=== PATIENT | male | born 2000 | race Asian ===

== ENCOUNTER 2020-05-22 10:27 | Outpatient (CLI) | payer BC ==
[2020-04-18 12:13] LABS: #Eosinphils 0.1 10x3/uL (0.0-0.5); #Monocytes 0.6 10x3/uL (0.0-1.1); #Neutrophils 4.5 10x3/uL (1.5-8.4); %Basophils 0.4 % (0.0-2.0); %Eosinophils 1.5 % (0.0-6.0); %Lymphocytes 27.4 % (18.0-47.0); %Monocytes 8.4 % (0.0-10.0); %Neutrophils 61.6 % (40.0-75.0); Mean Corpuscular HGB CONC 32.8 g/dL (32.0-36.0); Mean Corpuscular Hemoglobin 29.1 pg (27.0-33.0); Mean Corpuscular Volume 88.9 fl (81.2-95.1); Mean Platelet Volume 10.8 fl (7.4-10.4); Platelet Count 241 10x3/uL (150-450); RBC Distribution Width 12.6 % (11.5-14.5); Red Blood Cell (RBC) Count 5.49 10x6/uL (4.32-5.72); White Blood Cell (WBC) Count 7.3 10x3/uL (3.5-10.5)
[2020-04-18 23:10] LABS: SARS-CoV-2 PCR by NAA Not Detected (NotDetected)
[2020-05-22 12:28] LABS: #Basophils 0.1 10x3/uL (0.0-0.2); #Eosinphils 0.1 10x3/uL (0.0-0.5); #Monocytes 0.7 10x3/uL (0.0-1.1); #Neutrophils 5.3 10x3/uL (1.5-8.4); %Basophils 0.6 % (0.0-2.0); %Eosinophils 1.6 % (0.0-6.0); %Lymphocytes 23.2 % (18.0-47.0); %Monocytes 8.3 % (0.0-10.0); %Neutrophils 65.8 % (40.0-75.0); Hemoglobin 15.6 g/dL (13.5-17.5); Mean Corpuscular HGB CONC 33.2 g/dL (32.0-36.0); Mean Corpuscular Hemoglobin 29.4 pg (27.0-33.0); Mean Corpuscular Volume 88.7 fl (81.2-95.1); Mean Platelet Volume 11.2 fl (7.4-10.4); Platelet Count 226 10x3/uL (150-450); RBC Distribution Width 12.7 % (11.5-14.5)
[2020-05-22 22:07] LABS: SARS-CoV-2 PCR by NAA Not Detected (NotDetected)
== END 2020-05-22 10:28 | disposition home or self-care (01) ==
LOC: LABBT 10:27
PROVIDERS: ATTEND Surgery
DX: Z01.812 Encounter for preprocedural laboratory examination (principal); L05.91 Pilonidal cyst without abscess; Z20.822 Contact with and (suspected) exposure to COVID-19
CPT/HCPCS: 85025; 87635; U0003; U0005

== ENCOUNTER 2020-05-24 07:48 | Day surgery (SDC) | payer BC ==
[2020-05-23 09:01] VITALS: BMI 25.4
[2020-05-24] MEDS ORDERED: cefOXitin Sodium/Dextrose 2 GM/50 ML BAG ONE (08:28)
[2020-05-24] MEDS ORDERED: Midazolam HCl 2 mg/2 ml Vial ONE (08:36)
[2020-05-24] MEDS ORDERED: Glycopyrrolate 0.2 MG/ML 5 ML SYRINGE ONE (08:51)
[2020-05-24] MEDS ORDERED: Lidocaine 1% PF 5 ML VIAL ONE (08:51)
[2020-05-24] MEDS ORDERED: Ketorolac Tromethamine 30 MG/ML VIAL ONE (08:51)
[2020-05-24] MEDS ORDERED: PROPOFOL 200 MG/20 ML VIAL ONE (08:51)
[2020-05-24] MEDS ORDERED: Dexamethasone 20 MG/5 ML VIAL ONE (08:51)
[2020-05-24] MEDS ORDERED: PHENYLEPHRINE-NS 100 MCG/ML 10 ML SYRINGE ONE (08:51)
[2020-05-24] MEDS ORDERED: Metoclopramide HCl 10 MG/2 ML VIAL ONE (08:51)
[2020-05-24] MEDS ORDERED: Rocuronium Bromide 10 MG/ML (10ML VIAL) ONE (08:51)
[2020-05-24] MEDS ORDERED: Ondansetron PF 4 MG/2 ML Vial ONE (08:51)
[2020-05-24] MEDS ORDERED: Bupivacaine 0.25% HCL 30 ML VIAL ONE (09:02)
[2020-05-24] MEDS ORDERED: XYLOCAINE 2%-EPI 1:100,000 20 ML VIAL ONE (09:02)
[2020-05-24] MEDS ORDERED: Fentanyl 100 MCG/2 ML VIAL ONE (09:06)
[2020-05-24] MEDS ORDERED: Famotidine/PF 20 mg/2ml Vial ONE (09:06)
[2020-05-24] MEDS ORDERED: Meperidine HCl/PF 25 MG/ML VIAL ONE (09:06)
== END 2020-05-24 12:25 | disposition home or self-care (01) ==
LOC: SDC 07:48
PROVIDERS: ATTEND Surgery
PROC: 0JB90ZZ Excision of Buttock Subcutaneous Tissue and Fascia, Open Approach (ICD-10-PCS; principal; 2020-05-24)
DX: L05.01 Pilonidal cyst with abscess (principal); L05.02 Pilonidal sinus with abscess
CPT/HCPCS: 88304; J0694; J1100; J1885; J2175; J2250; J2405; J2704; J2765; J3010; S0020; S0028